=== PATIENT | female | born 1970 | race Caucasian/White ===

== ENCOUNTER 2018-10-06 12:57 | Emergency (ER) | payer OTHER ==
[~2018-10-06] VITALS: Ht 165.1 cm; Wt 122.5 kg
[2018-10-06] MEDS ORDERED: SYNTHROID200 MCG (13:13)
== END 2018-10-06 17:35 | disposition home or self-care (01) ==
LOC: ER 12:57
DX: M54.5 Low back pain (principal); M79.605 Pain in left leg; N39.0 Urinary tract infection, site not specified

== ENCOUNTER 2018-10-07 06:55 | Emergency (ER) | payer OTHER ==
[~2018-10-07] VITALS: Ht 162.6 cm; Wt 123.4 kg
[~2018-10-07 06:55] MED LIST: SYNTHROID200 MCG
== END 2018-10-07 17:03 | disposition home or self-care (01) ==
LOC: ER 06:55
DX: M76.892 Other specified enthesopathies of left lower limb, excluding foot (principal); M79.662 Pain in left lower leg; T36.8X5A Adverse effect of other systemic antibiotics, initial encounter; Y92.89 Other specified places as the place of occurrence of the external cause

== ENCOUNTER 2021-02-17 09:04 | Outpatient (CLI) | payer OTHER | END 2021-02-17 09:08 | disposition home or self-care (01) | LOC: SONOGRAMA 09:04 | PROVIDERS: ATTEND Pathology Anatomic Pathology & Clinical Pathology | DX: D34 Benign neoplasm of thyroid gland (principal); E06.3 Autoimmune thyroiditis ==